=== PATIENT | female | born 1940 | race Caucasian/White ===

== ENCOUNTER → 2019-02-27 | Outpatient (CLI) | payer OTHER | END | disposition home or self-care (01) | LOC: RAD 11:33 | DX: M54.2 Cervicalgia (principal) ==

== ENCOUNTER 2021-01-13 08:00 | Outpatient (CLI) | payer OTHER | END 2021-01-13 08:30 | disposition home or self-care (01) | LOC: PPH VACUNA 08:00 | DX: Z23 Encounter for immunization (principal) ==

== ENCOUNTER 2021-08-20 08:00 | Outpatient (CLI) | payer OTHER | END 2021-08-20 08:30 | disposition home or self-care (01) | LOC: PPH VACUNA 08:00 | PROVIDERS: ATTEND Emergency Medicine Pediatric Emergency Medicine | DX: Z23 Encounter for immunization (principal) ==

== ENCOUNTER → 2022-01-11 13:10 | Outpatient (CLI) | payer OTHER | END | disposition home or self-care (01) | LOC: NUCLEAR 13:00 | PROVIDERS: ATTEND Physical Medicine & Rehabilitation | DX: M81.0 Age-related osteoporosis without current pathological fracture (principal) ==

== ENCOUNTER 2022-10-25 15:18 | Outpatient (CLI) | payer OTHER | END 2022-10-25 15:30 | disposition home or self-care (01) | LOC: RAD 15:18 | PROVIDERS: ATTEND Physical Medicine & Rehabilitation | DX: S90.32XA Contusion of left foot, initial encounter (principal) ==

== ENCOUNTER 2022-11-11 08:18 | Outpatient (CLI) | payer OTHER | END 2022-11-11 08:25 | disposition home or self-care (01) | LOC: RX STUDY 08:18 | PROVIDERS: ATTEND Internal Medicine Gastroenterology | DX: K21.00 Gastro-esophageal reflux disease with esophagitis, without bleeding (principal) ==

== ENCOUNTER 2024-03-25 14:49 | Outpatient (CLI) | payer OTHER | END 2024-03-25 15:10 | disposition home or self-care (01) | LOC: SONOGRAMA 14:49 | PROVIDERS: ATTEND Physical Medicine & Rehabilitation | DX: M54.6 Pain in thoracic spine (principal); M54.50 Low back pain, unspecified; M25.511 Pain in right shoulder; M25.531 Pain in right wrist; R10.2 Pelvic and perineal pain ==

== ENCOUNTER 2024-07-24 13:26 | Outpatient (CLI) | payer OTHER ==
[~2024-07-24 13:26] MED LIST: MELOXICAM15 MG PO
== END 2024-07-24 13:31 | disposition home or self-care (01) ==
LOC: NUCLEAR 13:26
PROVIDERS: ATTEND Physical Medicine & Rehabilitation
DX: M81.0 Age-related osteoporosis without current pathological fracture (principal)